=== PATIENT | female | born 1960 | race Caucasian/White ===

== ENCOUNTER 2022-12-27 23:47 | Emergency (ER) | payer OTHER, SELFPAY ==
[2022-12-28 00:05] VITALS: BP 190/99; PULSE 82; RESP 20; TEMP 36.9; O2SAT 96; BMI 31.1
--- NOTE | 2022-12-28 01:35 | ECG_ITS ---
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 Measurements Intervals [place] Rate: 64 P: 74 WA: 177 QRS: 76 QRSD: 85 T: 74 QT: 428 QTc: 443 Interpretive Statements SINUS RHYTHM No previous ECG available for comparison Electronically Signed On 12-29-2022 11:24:51 ASSEMBLER KNIFE by Lex Fisher M.D. [id number]
--- NOTE | 2022-12-28 01:35 | XRR_ITS ---
PROCEDURE INFORMATION: Exam: XR Abdomen Exam date and time: 12/28/2022 1:54 AM Age: 62 years old Clinical indication: Abdominal pain; Flank; Right; Additional info: Abd constipation TECHNIQUE: Imaging protocol: Radiologic exam of the abdomen. Views: Frontal supine view of the abdomen. 1 View. COMPARISON: CR XR chest 1V portable [id number] 12/28/2022 1:50 AM FINDINGS: Gastrointestinal tract: Normal. No bowel dilation. Organs: 1.4 cm nonobstructing left renal pelvis stone. There has been a cholecystectomy. Calcified uterine fibroids are present. Bones/joints: Unremarkable. XR/XR KUB [id number] IMPRESSION: 1.4 cm nonobstructing left renal pelvis stone.
--- NOTE | 2022-12-28 01:35 | XRR_ITS ---
PROCEDURE INFORMATION: Exam: XR Chest Exam date and time: 12/28/2022 1:50 AM Age: 62 years old Clinical indication: Pain; Chest pressure; Additional info: Chest pain TECHNIQUE: Imaging protocol: Radiologic exam of the chest. Views: 1 view. COMPARISON: No relevant prior studies available. FINDINGS: Lungs: Unremarkable. No consolidation. Pleural spaces: Unremarkable. No pleural effusion. No pneumothorax. Heart/Mediastinum: Unremarkable. No cardiomegaly. Bones/joints: Unremarkable. XR/XR chest 1V portable [id number] IMPRESSION: No acute findings.
--- NOTE | 2022-12-28 01:35 | W.ED.GENADLT ---
Documented by User: TISHA Bentley 12/28/22 03:02 HPI - General Adult General: Chief complaint: General Medical Stated complaint: UTI, E. Coli, passing a kidney Time Seen by Provider: 12/28/22 01:27 History of Present Illness: 62-year-old female [facility] with multiple complaints. Patient states that she has uterine fibroids, has been recently diagnosed with a urinary tract infection, has been told she has kidney stones. Patient reports that about 2 months ago she had a bowel movement when she was constipated and since then she has had chest pressure radiates up into her neck. [facility] patient reported that she had had increased chest discomfort radiating up into her neck which prompted her to come to the ER. Patient appears nontoxic. Associated symptoms: Reports chest pain; Deny dyspnea Review of Systems Card: Reports: chest pain Resp: Denies: dyspnea GI: Reports: constipation and bloating : Reports: other (Pelvic pressure) Physical Exam Const: COMMON NORMALS: alert HENMT: COMMON NORMALS: normocephalic HEAD & SCALP: normocephalic MOUTH: moist mucous membranes abnormal Neck/C-Spine: COMMON NORMALS: full ROM Resp: COMMON NORMALS: normal respiratory effort and clear to auscultation bilaterally AUSCULTATION: clear to auscultation bilaterally Cardio: COMMON NORMALS: regular rate and regular rhythm RATE: regular rate RHYTHM: regular rhythm GI: COMMON NORMALS: Soft to palpation PALPATION: Yes Soft to palpation : COMMON NORMALS: Yes no CVA tenderness BLADDER/KIDNEY EXAM: Yes no CVA tenderness Back/Pelvis: COMMON NORMALS: no CVA tenderness Extremity: COMMON NORMALS: no pedal edema Neuro: SENSORIUM/ORIENTATION: Yes alert Skin: COMMON NORMALS: turgor normal GENERAL SKIN EXAM: turgor normal Course Vital Signs: Vital signs: Vital Signs Temperature 98.5 F 12/28/22 00:05 Pulse Rate 64 12/28/22 02:44 Respiratory Rate 15 12/28/22 02:44 Blood Pressure 140/75 12/28/22 02:44 Pulse Oximetry 99 12/28/22 02:44 Oxygen Delivery Me thod 12/28/22 02:44 [facility] - General Adult Medical Decision Making [facility] with chest wall pressure radiating up into her neck. Patient reports symptoms on and off for the last 2 months. Patient has been evaluated in other emergency departments with findings such as diverticulosis, uterine fibroid, renal calculi, UTI. Patient reports that she has had this obnoxious bloating along with the chest pressure radiating into her neck. Vital signs were normal except for elevation of blood pressure. Lungs were clear to auscultation. Abdomen was soft nontender. No edema was noted in the extremities. Differential diagnosis includes but not limited to ACS, anxiety about health, gastroesophageal reflux disorder. Laboratory values were unremarkable except for sodium of 130. EKG shows normal sinus rhythm. Troponin was less than 6. Reviewed labs and exam with patient with recommendations for follow-up with primary care. Discussed further evaluation with gastroenterology for patient's bloating and possible hiatal hernia. Patient reported understanding agreed to plan. Lab Data 12/28/22 02:15 12/28/22 02:15 Radiology Impressions Chest X-Ray 12/28/22 01:35 IMPRESSION: No acute findings. KUB X-Ray 12/28/22 01:35 IMPRESSION: 1.4 cm nonobstructing left renal pelvis stone. Laboratory Results WBC 7.0 10^3/uL (4.0-10.0) 12/28/22 02:15 RBC 4.45 10^6/uL (4.1-5.3) 12/28/22 02:15 Hgb 14.2 g/dL (11.5-15.3) 12/28/22 02:15 Hct 41.7 % (37.0-47.0) 12/28/22 02:15 MCV 93.7 fl (81-99) 12/28/22 02:15 MCH 31.9 pg (28.0-34.0) 12/28/22 02:15 MCHC 34.1 g/dL (30.0-36.0) 12/28/22 02:15 RDW 11.5 % (12.1-15.1) L 12/28/22 02:15 Plt Count 329 10^3/cmm (130-400) 12/28/22 02:15 MPV 9.2 fL (7.4-10.4) 12/28/22 02:15 Neut % (Auto) 73.1 % 12/28/22 02:15 Lymph % (Auto) 17.8 % 12/28/22 02:15 [place] % (Auto) 7.5 % 12/28/22 02:15 Eos % (Auto) 0.9 % 12/28/22 02:15 Baso % (Auto) 0.4 % 12/28/22 02:15 Neut # (Auto) 5.08 10^3/uL (1.8-7.7) 12/28/22 02:15 Lymph # (Auto) 1.2 10^3/uL (0.8-4.8) 12/28/22 02:15 [place] # (Auto) 0.5 10^3/uL (0.2-0.9) 12/28/22 02:15 Eos # (Auto) 0.1 10^3/uL (0.0-0.8) 12/28/22 02:15 Baso # (Auto) 0.0 10^3/uL (0.0-0.1) 12/28/22 02:15 Nucleated RBC % (auto) 0 % 12/28/22 02:15 Nucleated RBCs # 0.0 /100WBC 12/28/22 02:15 Sodium 130 mmol/L (136-145) L 12/28/22 02:15 Potassium 4.2 mmol/L (3.5-5.1) 12/28/22 02:15 Chloride 93 mmol/L (98-107) L 12/28/22 02:15 Carbon Dioxide 23 mmol/L (22-29) 12/28/22 02:15 Anion Gap 18.2 (5-19) 12/28/22 02:15 BUN 8 mg/dL (8-23) 12/28/22 02:15 Creatinine 0.7 mg/dL (0.5-0.9) 12/28/22 02:15 GFR Calculation 84.5 mL/min (90-130) L 12/28/22 02:15 Glucose 120 mg/dL (65-115) H 12/28/22 02:15 Calculated Osmolality 270 mOsm/kg (285-295) L 12/28/22 02:15 Calcium 10.6 mg/dL (8.5-10.5) H 12/28/22 02:15 Total Bilirubin 0.6 mg/dL (0.15-1.2) 12/28/22 02:15 AST 21 U/L (0-32) 12/28/22 02:15 ALT 15 U/L (0-33) 12/28/22 02:15 Alkaline Phosphatase 86 U/L (35-105) 12/28/22 02:15 Troponin T Gen 5 ng/L 6 ng/L (0-10) 12/28/22 02:15 Total Protein 6.9 g/dL (6.6-8.7) 12/28/22 02:15 Albumin 4.6 g/dL (3.5-5.2) 12/28/22 02:15 Globulin 2.3 g/dL (1.3-4.6) 12/28/22 02:15 Urine Color Colorless (Yellow) 12/28/22 02:16 Urine Appearance Clear (CLEAR) 12/28/22 02:16 Urine pH 6 (5-7) 12/28/22 02:16 Ur Specific [place] 1.010 (1.005-1.030) 12/28/22 02:16 Urine Protein Neg (Negative) 12/28/22 02:16 Urine Glucose (UA) Norm (Normal) 12/28/22 02:16 Urine Ketones Negative (Negative) 12/28/22 02:16 Urine Blood Neg (Negative) 12/28/22 02:16 Urine Nitrate Negative (Negative) 12/28/22 02:16 Urine Bilirubin Neg (Negative) 12/28/22 02:16 Urine Urobilinogen Neg mg/dL (Negative) 12/28/22 02:16 Ur Leukocyte Esterase Trace (Negative) H 12/28/22 02:16 Urine RBC None /hpf (0-2) 12/28/22 02:16 Urine WBC 0-4 /hpf (0-5) H 12/28/22 02:16 Ur Squamous Epith Cells 0-4 /hpf (0-5) H 12/28/22 02:16 Amorphous Sediment Not Reportable 12/28/22 02:16 Urine Bacteria Trace /hpf (NONE) 12/28/22 02:16 Urine Mucus Trace /hpf 12/28/22 02:16 Imaging Data CXR: My impression: No acute abnormality KUB: My impression: Left renal calculi, normal bowel gas pattern, gallbladder clips, large radiopaque area in the pelvis which may be the uterine fibroid patient had talked about. EKG Data EKG 1: EKG interpretation date: 12/28/22 EKG interpretation time: 01:58 Prior EKG tracings: not available for review Interpretation: EKG shows a sinus rhythm with a regular rate in the 80s. No ST elevation or ectopy is noted. No prior exam was available for comparison. Computer generated interpretation: Chest X-Ray 12/28/22 01:35 IMPRESSION: No acute findings. KUB X-Ray 12/28/22 01:35 IMPRESSION: 1.4 cm nonobstructing left renal pelvis stone. Discharge Plan Discharge Patient Disposition: Home Clinical Impression: Chest pain in adult Condition: Stable Discharge Orders: Discharge ED (Routine); Ordered 12/28/22 Ordered By: Darwin Palacios Discharge Diet: Usual diet Discharge Activity: Increase activity as tolerated Patient Instructions: Chest Pain (ED) Activity Restrictions/Additional Instructions: Follow-up with primary care for further evaluation and treatment and for recheck of blood pressure. Continue medications as directed. Limit water intake to 8 to 10 glasses a day. Alternate water with electrolyte solution. Return to ER for worsening symptoms such as increased shortness of breath, severe chest pain, vomiting with blood in it, or new concerns. Coding Level of Care Code ED Ticket Agent for Chg Fwd Exam Comprehensive Documented by User: Ben Howe DO 12/28/22 05:24 HPI - General Adult General: Chief complaint: General Medical Stated complaint: UTI, E. Coli, passing a kidney Time Seen by Provider: 12/28/22 01:27 Course Vital Signs: Vital signs: Vital Signs Temperature 98.5 F 12/28/22 00:05 Pulse Rate 64 12/28/22 02:44 Respiratory Rate 15 12/28/22 02:44 Blood Pressure 140/75 12/28/22 02:44 Pulse Oximetry 99 12/28/22 02:44 Oxygen Delivery Me thod 12/28/22 02:44 MDM - General Adult Medical Decision Making Patient comes in tonight with chest wall pressure radiating up into her neck. Patient reports symptoms on and off for the last 2 months. Patient has been evaluated in other emergency departments with findings such as diverticulosis, uterine fibroid, renal calculi, UTI. Patient reports that she has had this obnoxious bloating along with the chest pressure radiating into her neck. Vital signs were normal except for elevation of blood pressure. Lungs were clear to auscultation. Abdomen was soft nontender. No edema was noted in the extremities. Differential diagnosis includes but not limited to ACS, anxiety about health, gastroesophageal reflux disorder. Laboratory values were unremarkable except for sodium of 130. EKG shows normal sinus rhythm. Troponin was less than 6. Reviewed labs and exam with patient with recommendations for follow-up with primary care. Discussed further evaluation with gastroenterology for patient's bloating and possible hiatal hernia. Patient reported understanding agreed to plan. This patient was originally seen by TISHA Faust.? I agree with his history, evaluation, and treatment. Lab Data 12/28/22 02:15 12/28/22 02:15 Radiology Impressions Chest X-Ray 12/28/22 01:35 IMPRESSION: No acute findings. KUB X-Ray 12/28/22 01:35 IMPRESSION: 1.4 cm nonobstructing left renal pelvis stone. Laboratory Results WBC 7.0 10^3/uL (4.0-10.0) 12/28/22 02:15 RBC 4.45 10^6/uL (4.1-5.3) 12/28/22 02:15 Hgb 14.2 g/dL (11.5-15.3) 12/28/22 02:15 Hct 41.7 % (37.0-47.0) 12/28/22 02:15 MCV 93.7 fl (81-99) 12/28/22 02:15 MCH 31.9 pg (28.0-34.0) 12/28/22 02:15 MCHC 34.1 g/dL (30.0-36.0) 12/28/22 02:15 RDW 11.5 % (12.1-15.1) L 12/28/22 02:15 Plt Count 329 10^3/cmm (130-400) 12/28/22 02:15 MPV 9.2 fL (7.4-10.4) 12/28/22 02:15 Neut % (Auto) 73.1 % 12/28/22 02:15 Lymph % (Auto) 17.8 % 12/28/22 02:15 [place] % (Auto) 7.5 % 12/28/22 02:15 Eos % (Auto) 0.9 % 12/28/22 02:15 Baso % (Auto) 0.4 % 12/28/22 02:15 Neut # (Auto) 5.08 10^3/uL (1.8-7.7) 12/28/22 02:15 Lymph # (Auto) 1.2 10^3/uL (0.8-4.8) 12/28/22 02:15 [place] # (Auto) 0.5 10^3/uL (0.2-0.9) 12/28/22 02:15 Eos # (Auto) 0.1 10^3/uL (0.0-0.8) 12/28/22 02:15 Baso # (Auto) 0.0 10^3/uL (0.0-0.1) 12/28/22 02:15 Nucleated RBC % (auto) 0 % 12/28/22 02:15 Nucleated RBCs # 0.0 /100WBC 12/28/22 02:15 Sodium 130 mmol/L (136-145) L 12/28/22 02:15 Potassium 4.2 mmol/L (3.5-5.1) 12/28/22 02:15 Chloride 93 mmol/L (98-107) L 12/28/22 02:15 Carbon Dioxide 23 mmol/L (22-29) 12/28/22 02:15 Anion Gap 18.2 (5-19) 12/28/22 02:15 BUN 8 mg/dL (8-23) 12/28/22 02:15 Creatinine 0.7 mg/dL (0.5-0.9) 12/28/22 02:15 GFR Calculation 84.5 mL/min (90-130) L 12/28/22 02:15 Glucose 120 mg/dL (65-115) H 12/28/22 02:15 Calculated Osmolality 270 mOsm/kg (285-295) L 12/28/22 02:15 Calcium 10.6 mg/dL (8.5-10.5) H 12/28/22 02:15 Total Bilirubin 0.6 mg/dL (0.15-1.2) 12/28/22 02:15 AST 21 U/L (0-32) 12/28/22 02:15 ALT 15 U/L (0-33) 12/28/22 02:15 Alkaline Phosphatase 86 U/L (35-105) 12/28/22 02:15 Troponin T Gen 5 ng/L 6 ng/L (0-10) 12/28/22 02:15 Total Protein 6.9 g/dL (6.6-8.7) 12/28/22 02:15 Albumin 4.6 g/dL (3.5-5.2) 12/28/22 02:15 Globulin 2.3 g/dL (1.3-4.6) 12/28/22 02:15 Urine Color Colorless (Yellow) 12/28/22 02:16 Urine Appearance Clear (CLEAR) 12/28/22 02:16 Urine pH 6 (5-7) 12/28/22 02:16 Ur Specific [place] 1.010 (1.005-1.030) 12/28/22 02:16 Urine Protein Neg (Negative) 12/28/22 02:16 Urine Glucose (UA) Norm (Normal) 12/28/22 02:16 Urine Ketones Negative (Negative) 12/28/22 02:16 Urine Blood Neg (Negative) 12/28/22 02:16 Urine Nitrate Negative (Negative) 12/28/22 02:16 Urine Bilirubin Neg (Negative) 12/28/22 02:16 Urine Urobilinogen Neg mg/dL (Negative) 12/28/22 02:16 Ur Leukocyte Esterase Trace (Negative) H 12/28/22 02:16 Urine RBC None /hpf (0-2) 12/28/22 02:16 Urine WBC 0-4 /hpf (0-5) H 12/28/22 02:16 Ur Squamous Epith Cells 0-4 /hpf (0-5) H 12/28/22 02:16 Amorphous Sediment Not Reportable 12/28/22 02:16 Urine Bacteria Trace /hpf (NONE) 12/28/22 02:16 Urine Mucus Trace /hpf 12/28/22 02:16 EKG Data EKG 1: Computer generated interpretation: Chest X-Ray 12/28/22 01:35 IMPRESSION: No acute findings. KUB X-Ray 12/28/22 01:35 IMPRESSION: 1.4 cm nonobstructing left renal pelvis stone. Discharge Plan Discharge Patient Disposition: Home Clinical Impression: Chest pain in adult Condition: Stable Discharge Orders: Discharge ED (Routine); Ordered 12/28/22 Ordered By: Darwin Palacios Discharge Diet: Usual diet Discharge Activity: Increase activity as tolerated Patient Instructions: Chest Pain (ED) Activity Restrictions/Additional Instructions: Follow-up with primary care for further evaluation and treatment and for recheck of blood pressure. Continue medications as directed. Limit water intake to 8 to 10 glasses a day. Alternate water with electrolyte solution. Return to ER for worsening symptoms such as increased shortness of breath, severe chest pain, vomiting with blood in it, or new concerns. Coding Level of Care Code ED Ticket Agent for Vandana Cabello Exam Comprehensive
[2022-12-28 02:19] LABS: Basophils % 0.4 %; Eosinophils # 0.1 10^3/uL (0.0-0.8); Eosinophils % 0.9 %; Hematocrit 41.7 % (37.0-47.0); Hemoglobin 14.2 g/dL (11.5-15.3); Lymphocytes # 1.2 10^3/uL (0.8-4.8); Lymphocytes % 17.8 %; Mean Corpuscular HGB Conc 34.1 g/dL (30.0-36.0); Mean Corpuscular Hemoglobin 31.9 pg (28.0-34.0); Mean Corpuscular Volume 93.7 fl (81-99); Mean Platelet Volume 9.2 fL (7.4-10.4); Monocytes # 0.5 10^3/uL (0.2-0.9); Monocytes % 7.5 %; Neutrophils # 5.08 10^3/uL (1.8-7.7); Neutrophils % 73.1 %; Nucleated Red Blood Cells % 0 %; Platelet Count 329 10^3/cmm (130-400); Red Blood Count 4.45 10^6/uL (4.1-5.3); Red Cell Distribution Width 11.5 % (12.1-15.1)
[2022-12-28 02:32] LABS: Add Urine Microscopic? YES; Bilirubin Urine Neg (Negative); Blood Urine Neg (Negative); Glucose Urine UA Norm (Normal); Ketones Urine Negative (Negative); Leukocyte Esterase Urine Trace (Negative); Nitrate Urine Negative (Negative); Protein Urine Neg (Negative); Urine Appearance Clear (CLEAR); Urine Color Colorless (Yellow); Urobilinogen Urine Neg (Negative); pH Urine 6 (5-7)
[2022-12-28 02:34] LABS: Add Urine Culture? No; Bacteria Urine TRACE /hpf; Mucus Urine TRACE /hpf; Squamous Epithelial Cell Urine 0-4 /hpf (0-5); WBC Urine 0-4 /hpf (0-5)
[2022-12-28 02:40] LABS: Troponin T (5th) Once 6 ng/L (0-10)
[2022-12-28 02:42] LABS: Alanine Aminotransferase 15 U/L (0-33); Albumin Level 4.6 g/dL (3.5-5.2); Alkaline Phosphatase 86 U/L (35-105); Anion Gap 18.2 (5-19); Aspartate Amino Transferase 21 U/L (0-32); Blood Urea Nitrogen 8 mg/dL (8-23); Calcium 10.6 mg/dL (8.5-10.5); Carbon Dioxide 23 mmol/L (22-29); Chloride 93 mmol/L (98-107); Globulin 2.3 g/dL (1.3-4.6); Glomerular Filtration Rate 84.5 mL/min (90-130); Glucose 120 mg/dL (65-115); Osmolality Calculated 270 mOsm/kg (285-295); Potassium 4.2 mmol/L (3.5-5.1); Sodium 130 mmol/L (136-145); Total Bilirubin 0.6 mg/dL (0.15-1.2); Total Protein 6.9 g/dL (6.6-8.7)
[2022-12-28 02:44] VITALS: BP 140/75; PULSE 64; RESP 15; O2SAT 99
== END 2022-12-28 03:13 | disposition home or self-care (01) ==
PROVIDERS: Emergency Provider Nurse Practitioner Family
DX: R07.9 Chest pain, unspecified (principal)
CPT/HCPCS: 71045; 74018; 80053; 81001; 84484; 85025; 93005; 99285

== ENCOUNTER 2025-09-19 19:12 | Emergency (ER) | payer MEDICARE, SELFPAY ==
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
--- OUTSIDE RECORDS SUMMARY | 2025-09-19 19:21 | XMS_ITS | Clinical Summary ---
Author Organization [facility] Address [address] [place] [address] Care Team Providers Care Chief Fundraising Officer Name Role Phone Ashley Schafer Primary Care Provider + Source Comments [facility],non-owned Affiliates and Associated Physician Practices is amultiple site organization consisting of ambulatory clinics and hospital sitesin [place], [place], [place] and [place]. This disclosure is being madepursuant to the Care Everywhere program and may not contain all information available regarding this patient. Last updated 18.[facility] [employer] Allergies No known active allergies Medications * Be aware that medications may not be up to date on this document. Alwaysverify current medications with the patient. acetaminophen (Tylenol) 325 MG tablet Take 1 (one) tablet by mouth Active baclofen (Lioresal) 10 MG tablet Take 1 (one) tablet by mouth 3 times daily as needed Active mirtazapine (Remeron) 15 MG tablet Take 1 (one) tablet by mouth 07/19/2025 Active gabapentin (Neurontin) 100 MG capsule Take 1 (one) capsule by mouth 3 times daily 07/19/2025 Active ibuprofen (Motrin) 600 MG tablet Take 1 (one) tablet by mouth every 6 hours as needed for Pain Active polyethylene glycol 3350 (Miralax) 17 GM/SCOOP powder Take 17 (seventeen) g by mouth once daily Active Turmeric (QC TUMERIC COMPLEX PO) Active Encounters Date Type Department Care Team Description 09/19/2025 11:00 AM CDT Office Visit [facility] - ENVIRONMENTAL SERVICES TECHNICIAN [address] [place] [address] Simone Anand MD Neuralgia of left pudendal nerve (Primary Dx); Trigger point 09/19/2025 Travel 09/06/2025 Telephone [facility] - ENVIRONMENTAL SERVICES TECHNICIAN [address] [place] [address] Simone Anand MD Treatment (Questions about treatment, pls call, thank you) 08/04/2025 Travel from Last 3 Months Social History Tobacco Use Types Packs/Day Years [...] on file Sexual Orientation Not on file Last Filed Vital Signs Vital Sign Reading Time Taken Comments Blood Pressure 126/82 09/19/2025 10:43 AM CDT Pulse - - Temperature - - Respiratory Rate - - Oxygen Saturation - - Inhaled Oxygen Concentration - - Weight 68 kg (150 lb) 09/19/2025 10:43 AM CDT Height 157.5 cm (5' 2 ) 09/19/2025 10:43 AM CDT Body Mass Index 27.44 09/19/2025 10:43 AM CDT Plan of Treatment Health Maintenance Due Date Last Done Comments BONE DENSITY TESTING 1960 COLOGUARD (AGES 45-75) - COL ON CA SCREENING 1960 COLON MONITORING 1960 COLONOSCOPY - COLON CA SCREENING 1959 CT COLONOGRAPHY - COLON CA SCREENING 1960 Colorectal Cancer Screening 1960 FIT - COLON CA SCREENING 1959 FLEX SIG - COLON CA SCREENING 1959 LIPID TESTING 1960 HEPATITIS C SCREENING 01/21/1977 DTAP/TDAP/TD VACCINES (1 - Tdap) 1978 PNEUMOCOCCAL VACCINE 50+ (1 of 1 - PCV) 2009 ZOSTER VACCINE (1 of 2) 2009 MEDICARE AWV CALENDAR YEAR 2024 COVID-19 VACCINE (1 - 2023-2 5 season) 2025 INFLUENZA VACCINE (#1) 2025 SCREENING FOR DIABETES 09/19/2025 MAMMOGRAM 05/23/2027 05/23/2025, 05/02/2025 Respiratory Syncytial Virus (RSV) Vaccine Pt: or over 60 yrs (1 - 1-dose 75+ series) 2034 DEPRESSION SCREENING Completed 09/19/2025 HEPATITIS B VACCINE Aged Out No longe r eligible based on patient's age to complete this topic HIB VACCINE Aged Out No longer eligi ble based on patient's age to complete this topic HPV VACCINE Aged Out No longer eligi ble based on patient's age to complete this topic MENINGOCOCCAL (Group B) VACCINE SHARED DECISION-MAKING Aged Out No longer eligible based on patient's age to complete this topic MENINGOCOCCAL GROUPS A/C/Y/W VACCINE Aged Out No longer eligible b ased on patient's age to complete this topic Insurance [employer] MEDICARE ADV Care Teams Chief Fundraising Officer Relationship Specialty Start Date End Date Ashley Schafer, PAWN BROKER-MANAGER FIRE [address] [place] [id number] PCP - General Nurse Practitioner 09/19/25
--- OUTSIDE RECORDS SUMMARY | 2025-09-19 19:21 | XMS_ITS | Encounter Summary ---
Author Organization [facility] Health Address [address] [place] [address] Care Team Providers Care Flight Manager Name Role Phone Ashley Schafer Primary Care Provider + Encounter Details Date Type Department Care Team (Latest Contact Info) Description 09/19/2025 Travel Social History Tobacco Use Types Packs/Day Years Used Date Smoking Tobacco: Former Cigarettes Smokeless Tobacco: Never Alcohol Use Standard Drinks/Week Comments Not Currently [...] on file documented as of this encounter Plan of Treatment Not on file documented as of this encounter Visit Diagnoses Not on filedocumented in this encounter Care Teams Flight Manager Relationship Specialty Start Date End Date Ashley Schafer APRN-CNP [address] [place] [phone] PCP - General Nurse Practitioner 09/19/25 documented as of this encounter
--- OUTSIDE RECORDS SUMMARY | 2025-09-19 19:21 | XMS_ITS | Clinical Summary ---
Author Organization [facility] Address [address] [place] [address] Phone Care Team Providers Care Corporate Communications Associate Name Role Phone Unavailable Primary Care Provider Unavailabl e Allergies No known active allergies Medications pregabalin (LYRICA) 100 mg Capsule Take 1 Capsule by mouth 2 times daily. 02/04/2025 Active naproxen (NAPROSYN) 500 mg tablet Take 500 mg by mouth 2 times daily with meals. 01/28/2025 Active baclofen (LIORESAL) 10 mg tablet Take 1 Tablet by mouth 3 times daily. 01/27/2025 Active dicyclomine (BENTYL) 20 mg tablet Take 20 mg by mouth. 11/11/2024 Active meloxicam (MOBIC) 15 mg tablet Take 15 mg by mouth. 11/11/2024 Active acetaminophen (TYLENOL) 325 mg tablet Take 325 mg by mouth. Active Active Problems No known active problems Encounters Date Type Department Care Team Description 08/16/2025 External Device Data [facility] ABSTRACTION Provider, Abstract 07/05/2025 External Device Data [facility] ABSTRACTION Provider, Abstract from Last 3 Months Immunizations Immunization Administration Dates Next Due (TDVAX)(7 YRS UP) TETANUS AN D DIPHTHERIA TOXOIDS, ADSORBED (2 LF OF TETANUS TOXOID AND 2 LF OF DIPHTHERIA TOXOID), 0.5ML (PF), IM 04/28/2001 Family History Medical History Relation Name Comments Breast Cancer Neg Hx Melanoma Neg Hx Ovarian Cancer Neg Hx Pancreatic Cancer Neg Hx Uterine or Endometrial Cancer, Not Including Cervical Neg Hx Social History Tobacco Use Types Packs/Day Years Used Date Smoking Tobacco: Never Assessed Comments No Sex and Gender Information Value Date Recorded Sex Assigned at Not on file Legal Sex Female 12:05 AM 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 Gender Identity Not on file Sexual Orientation Not on file Last Filed Vital Signs Vital Sign Reading Time Taken Comments Blood Pressure - - Pulse - - Temperature - - Respiratory Rate - - Oxygen Saturation - - Inhaled Oxygen Concentration - - Weight 74.8 kg (165 lb) 02/07/2025 3:06 PM CDT Height 157.5 cm (5' 2 ) 02/07/2025 3:06 PM CDT Body Mass Index 30.18 02/07/2025 3:06 PM CDT Plan of Treatment Health Maintenance Due Date Last Done Comments Pre-Diabetes and Diabetes Screening 1960 COLORECTAL SCREENING 2004 Colorectal Cancer Screening 2004 FIT-DNA Q 3 years 2004 FIT/FOBT Q 1 year 2004 Flex Sig/CT Colonography Q 5 years 2004 PNEUMOCOCCAL VACCINE 50+ YEA RS (1 of 1 - PCV) 2009 ZOSTER VACCINE (1 of 2) 2009 DTAP/TDAP/TD VACCINES (1 - Tdap) 02/15/2014 02/15/20 14, 04/28/2001 OSTEOPOROSIS SCREENING 2024 INFLUENZA VACCINE (#1) 2025 BREAST CANCER SCREENING 05/23/2026 05/23/2025, 05/02 RSV VACCINE (60+ or ) (1 - 1-dose 75+ series) 2034 Procedures Procedure Name Priority Date/Time Associated Diagnosis Comments MAMMO DIAG UNI LEFT 3D DAISY W OR WO CAD Routine 05/23/2025 10:14 AM CDT Inconclusive mammogram from Last 3 Months or Most Recently Relevant to Health Maintenance Results * MAMMO 3D DAISY DIAGNOSTIC UNI LT W OR WO CAD (05/23/2025 10:14 AM CDT) Anatomical Region Laterality Modality Breast Left Mammography 05/23/2025 9:13 AM CDT Addenda Addendum by Anusha Ortiz DO on 05/24/2025 11:41 AM CDT Addendum: The LEFT breast was evaluated by mammography. (The original report incorrectly states right breast mammogram was performed.) Narrative 05/23/2025 10:14 AM CDT EXAMINATION: MAMMO 3D DAISY DIAGNOSTIC UNI LT W OR WO CAD, MAMMO BREAST US LEFT LTD INDICATION: 65-year-old patient returns for evaluation of left breast focal asymmetry. No first degree family history of breast or ovarian cancer. COMPARISON: 05/02/2025 FINDINGS: MAMMOGRAPHY: BREAST COMPOSITION: There are scattered areas of fibroglandular density. DIAGNOSTIC RIGHT MAMMOGRAM In spot compression images, the asymmetry persists in CC view only. ULTRASOUND OF THE LEFT BREAST: Focused ultrasound at the 12:00 position 4 cm from the nipple demonstrates an anechoic cyst which measures up to 8.7 mm. This is similar in size and shape and corresponds with the mammographic abnormality. No internal flow or posterior acoustic shadowing is seen. Ultrasound of the axilla demonstrates normal axillary lymph nodes. IMPRESSIONS: The left breast asymmetry corresponds with a benign cyst. BI-RADS 2. Benign findings. Resume annual screening mammography. Findings and verbal/written recommendations were conveyed to the patient after completion of the exam. Procedure Note Anusha Ortiz, - 05/23/2025 EXAMINATION: MAMMO 3D DAISY DIAGNOSTIC UNI LT W OR WO CAD, MAMMO BREAST US LEFT LTD INDICATION: 65-year-old patient returns for evaluation of left breast focal asymmetry. No first degree family history of breast or ovarian cancer. COMPARISON: 05/02/2025 FINDINGS: MAMMOGRAPHY: BREAST COMPOSITION: There are scattered areas of fibroglandular density. DIAGNOSTIC RIGHT MAMMOGRAM In spot compression images, the asymmetry persists in CC view only. ULTRASOUND OF THE LEFT BREAST: Focused ultrasound at the 12:00 position 4 cm from the nipple demonstrates an anechoic cyst which measures up to 8.7 mm. This is similar in size and shape and corresponds with the mammographic abnormality. No internal flow or posterior acoustic shadowing is seen. Ultrasound of the axilla demonstrates normal axillary lymph nodes. IMPRESSIONS: The left breast asymmetry corresponds with a benign cyst. BI-RADS 2. Benign findings. Resume annual screening mammography. Findings and verbal/written recommendations were conveyed to the patient after completion of the exam. us Braxton Ro MD MAMMO ORDERABLES Edited Resul t - Final from Last 3 Months or Most Recently Relevant to Health Maintenance [facility]
[2025-09-19 19:23] VITALS: BP 165/81; PULSE 84; RESP 18; TEMP 36.5; O2SAT 97; BMI 26.9
--- NOTE | 2025-09-19 19:31 | ECG_ITS ---
[facility] Test Date: 2025-09-19 Pat Name: Le Bailey Department: Room: Gender: Female Loss Prevention Investigator: : 1960 Requested By: Christel Limon Order Number: [id number] Valerie MD: Tania Hernandez M.D. Measurements Intervals Dixon Rate: 73 P: 57 GA: 178 QRS: 35 QRSD: 80 T: 49 QT: 383 QTc: 424 Interpretive Statements SINUS RHYTHM LOW QRS VOLTAGE IN PRECORDIAL LEADS [QRS DEFLECTION < 1.0 mV IN CHEST LEADS] NONSPECIFIC T-WAVE ABNORMALITY INTERPRETATION BASED ON A DEFAULT AGE OF 40 YEARS Compared to ECG 12/28/2022 01:48:21 Low QRS voltage now present T-wave abnormality now present Electronically Signed On 09-20-2025 19:39:48 CDT by Tania Hernandez M.D. [id number]
[2025-09-19 20:29] LABS: Hematocrit 37.6 % (36-47); Hemoglobin 12.90 g/dL (11.27-16.99); Mean Corpuscular HGB Conc 34.3 g/dL (30-55); Mean Corpuscular Hemoglobin 34.9 pg (27-33); Mean Corpuscular Volume 101.6 fl (85-98); Nucleated Red Blood Cells % 0 %; Platelet Count 198 10^3/cmm (157-399); Red Blood Count 3.70 10^6/uL (3.85-5.65); White Blood Count 13.93 10^3/uL (3.29-11.43)
[2025-09-19 20:53] LABS: Alanine Aminotransferase 12 U/L (0-33); Albumin Level 4.7 g/dL (3.5-5.2); Alkaline Phosphatase 67 U/L (35-105); Anion Gap 19.0 (5-19); Aspartate Amino Transferase 21 U/L (0-32); Blood Urea Nitrogen 12 mg/dL (8-23); Calcium 9.9 mg/dL (8.5-10.5); Carbon Dioxide 24 mmol/L (22-29); Chloride 105 mmol/L (98-107); Creatinine Clr Calc Pharmacy 61.9513; Globulin 2.5 g/dL (1.3-4.6); Glucose 136 mg/dL (65-115); Osmolality Calculated 300 mOsm/kg (285-295); Potassium 4.0 mmol/L (3.5-5.1); Sodium 144 mmol/L (136-145); Total Protein 7.2 g/dL (6.6-8.7)
--- NOTE | 2025-09-19 21:30 | ECG_ITS ---
[facility] Test Date: 2025-09-19 Pat Name: Le Bailey Department: Room: Gender: Female Assistant Center Director: : 1960 Requested By: Christel Limon Order Number: [id number] Valerie MD: Tania Hernandez M.D. Measurements Intervals [place] Rate: 77 P: 55 AZ: 181 QRS: 48 QRSD: 82 T: 52 QT: 389 QTc: 443 Interpretive Statements SINUS RHYTHM Non diagnostic T wave changes Compared to ECG 12/28/2022 01:48:21 No significant changes Electronically Signed On 09-20-2025 15:39:28 CDT by Tania Hernandez M.D. [email or web address]
--- NOTE | 2025-09-19 21:32 | W.ED.GENADLT ---
HPI - General Adult General: Chief complaint: Nausea/Vomiting/Diarrhea Stated complaint: V\Dry Heaving\Dizzy Time Seen by Provider: 09/19/25 21:28 History of Present Illness: 65yo F w/cc presents with a chief complaint of nausea and vomiting during the car ride from [place] today. Patient states that the air conditioning in the car broke and she is quite sensitive to heat. She states she could not stop throwing up on the ride here though she is feeling much better now that she has cooled off. Patient was also feeling dizzy at that time and was feeling shaky, felt generally too weak to ambulate though that has now improved. Prior to this event, she has not been experiencing fever, runny nose, sore throat, cough, chest pain, shortness of breath, palpitations, hemoptysis or syncope or lower extremity swelling. She denies dysuria or hematuria. No diarrhea or blood in stool. Of note, patient states she has been visiting her mother in [place] and some residents have had symptoms of upper GI illness. Related Data Previous Rx's ?Medication ?Instructions ?Recorded ondansetron HCl 4 mg tablet 4 mg PO Q6H PRN nausea and 09/20/25 vomiting 5 days #20 tabs Allergies Allergy/AdvReac Type Severity Reaction Status Date / Time No Known Allergies Allergy Verified 12/28/22 00:12 Physical Exam Narrative: EXAM NARRATIVE: Vital signs were reviewed. Patient is alert and oriented. Patient is breathing comfortably, no increased WOB or accessory muscle use. SpO2 is above 95% on RA. Patient has clear lungs b/l, no rhonchi, wheezing or crackles. No hypotension or tachycardia. Abdomen is soft, nondistended and nontender. Patient is moving all extremities, no deformity or gross injury. No lower extremity edema or asymmetry. Neuro: Awake, alert, strength equal bilaterally. No sensory deficit. Able to perform FNF, heel to [place]. Ambulatory. CRANIAL NERVES: II: Pupils equal and reactive, III, IV, : EOM intact, no gaze preference or deviation, no nystagmus. V: normal sensation in V1, V2, and V3 segments bilaterally VII: no asymmetry, no nasolabial fold flattening VIII: normal hearing to speech IX, X: normal palatal elevation, no uvular deviation XI: 5/5 head turn and 5/5 shoulder shrug bilaterally XII: midline tongue protrusion Course Vital Signs: Vital signs: Vital Signs Temperature 97.7 F 09/19/25 19:23 Pulse Rate 97 09/20/25 01:10 Respiratory Rate 18 09/19/25 19:23 Blood Pressure 147/67 09/20/25 01:10 Pulse Oximetry 97 09/20/25 01:10 Oxygen Delivery Me thod Room Air 09/19/25 23:13 MDM - General Adult Medical Decision Making Patient is a 65-year-old female presenting with a chief complaint of nausea, vomiting, overheating during the car ride from [place]. She states the air conditioning in the vehicle was broken and she is sensitive to heat. She is feeling much better now. Differential diagnosis includes but is limited to, pancreatitis, gastroenteritis, cholecystitis, appendicitis, urinary tract infection, pyelonephritis, pneumonia, ACS, other. On exam, patient is HemoCue stable, nontoxic-appearing and has a nonfocal neurologic exam. Patient was evaluated basic lab work including CBC, CMP, UA and EKG. Patient has a mildly elevated white blood cell count. She is not anemic. Patient has normal kidney function, liver function and does not have any actionable electrolyte abnormalities. UA is not consistent with infection. After treatment with Zofran and reassessment, patient is feeling much better. EKG shows sinus rhythm with a heart rate of 73, normal axis, normal rules and no evidence of ST segment elevation. At this time, patient is appropriate for outpatient management. Patient was counseled on return precautions, given instructions on supportive care at home and discharged from the emergency department in a stable condition. Lab Data 09/19/25 20:18 09/19/25 20:18 Laboratory Results WBC 13.93 10^3/uL (3.29-11.43) H 09/19/25 20:18 RBC 3.70 10^6/uL (3.85-5.65) L 09/19/25 20:18 Hgb 12.90 g/dL (11.27-16.99) 09/19/25 20:18 Hct 37.6 % (36-47) 09/19/25 20:18 MCV 101.6 fl (85-98) H 09/19/25 20:18 MCH 34.9 pg (27-33) H 09/19/25 20:18 MCHC 34.3 g/dL (30-55) 09/19/25 20:18 RDW 12.5 % (12.1-15.1) 09/19/25 20:18 Plt Count 198 10^3/cmm (157-399) 09/19/25 20:18 MPV 9.2 fL (7.4-10.4) 09/19/25 20:18 Neut % (Auto) 92.5 % 09/19/25 20:18 Lymph % (Auto) 2.7 % 09/19/25 20:18 Ford % (Auto) 4.2 % 09/19/25 20:18 Eos % (Auto) 0.0 % 09/19/25 20:18 Baso % (Auto) 0.1 % 09/19/25:18 Neut # (Auto) 12.89 10^3/uL (1.8-7.7) H 09/19/25 20:18 Lymph # (Auto) 0.4 10^3/uL (0.8-4.8) L 09/19/25 20:18 Ford # (Auto) 0.6 10^3/uL (0.2-0.9) 09/19/25 20:18 Eos # (Auto) 0.0 10^3/uL (0.0-0.8) 09/19/25 20:18 Baso # (Auto) 0.0 10^3/uL (0.0-0.1) 09/19/25 20:18 Nucleated RBC % (auto) 0 % 09/19/25 20:18 Nucleated RBCs # 0.0 /100WBC 09/19/25 20:18 Sodium 144 mmol/L (136-145) 09/19/25 20:18 Potassium 4.0 mmol/L (3.5-5.1) 09/19/25 20:18 Chloride 105 mmol/L (98-107) 09/19/25 20:18 Carbon Dioxide 24 mmol/L (22-29) 09/19/25 20:18 Anion Gap 19.0 (5-19) 09/19/25 20:18 BUN 12 mg/dL (8-23) 09/19/25 20:18 Creatinine 0.6 mg/dL (0.5-0.9) 09/19/25 20:18 GFR Calculation 100.0 mL/min (90-130) 09/19/25 20:18 Glucose 136 mg/dL (65-115) H 09/19/25 20:18 Calculated Osmolality 300 mOsm/kg (285-295) H 09/19/25 20: Calcium 9.9 mg/dL (8.5-10.5) 09/19/25 20: Total Bilirubin 1.0 mg/dL (0.15-1.2) 09/19/25: AST 21 U/L (0-32) 09/19/25 20:18 ALT 12 U/L (0-33) 09/19/25 20:18 Alkaline Phosphatase 67 U/L (35-105) 09/19/25 20: Total Protein 7.2 g/dL (6.6-8.7) 09/19/25 20: Albumin 4.7 g/dL (3.5-5.2) 09/19/25: Globulin 2.5 g/dL (1.3-4.6) 09/19/25 20: Urine Color Yellow (Yellow) 09/19/25 22:04 Urine Appearance Clear (CLEAR) 09/19/25 22: Urine pH 5.5 (5-7) 09/19/25 22:04 Ur Specific [place] 1.025 (1.005-1.030) 09/19/25 22: Urine Protein 1+ (Negative) A 09/19/25 22:04 Urine Glucose (UA) Negative (Normal) 09/19/25 22: Urine Ketones 4+ (Negative) 09/19/25 22: Urine Blood Negative (Negative) 09/19/25 22:04 Urine Nitrate Negative (Negative) 09/19/25 22: Urine Bilirubin Negative (Negative) 09/19/25 22: Urine Urobilinogen 1.0 mg/dL (Negative) 09/19/25 22:04 Ur Leukocyte Esterase Trace (Negative) A 09/19/25 22:04 Urine RBC 0-4 /hpf (0-2) H 09/19/25 22:04 Urine WBC 5-10 /hpf (0-5) H 09/19/25 22:04 Ur Squamous Epith Cells 5-10 /hpf (0-5) H 09/19/25 22:04 Amorphous Sediment Not Reportable 09/19/25 22:04 Urine Bacteria Trace /hpf (NONE) 09/19/25 22:04 Urine Mucus 2+ /hpf 09/19/25 22:04 Urine Yeast Trace /hpf 09/19/25 22:04 No radiology studies performed this visit ED provider radiology interpretation(s): Normal sinus rhythm with a heart rate of 77, normal axis, normal intervals, no evidence of ST segment elevation, TWI or ischemic change. Discharge Plan Discharge Patient Disposition: Home Clinical Impression: Nausea & vomiting Qualifiers: Vomiting type: unspecified Qualified Code(s): R11.2 - Nausea with vomiting, unspecified Heat exposure Qualifiers: Encounter type: initial encounter Qualified Code(s): T67.9XXA - Effect of heat and light, unspecified, initial encounter Condition: Stable Prescriptions: New ondansetron HCl 4 mg tablet 4 mg PO Q6H PRN (Reason: nausea and vomiting) 5 Days Qty: 20 0RF Discharge Orders: Discharge ED (Routine); Ordered 09/20/25 Ordered By: Christel Limon Referrals: Braxton Ro MD [Primary Care Provider, Family Practice] Patient Instructions: Heat Exhaustion - Adult, Acute Nausea and Vomiting (DC), Opioid Safety, Pain Management, Patient Portal & Terry Instructions Activity Restrictions/Additional Instructions: Take Zofran for nausea and vomiting and please hydrate with Pedialyte, low sugar Gatorade or broth. Continue to monitor your condition closely at home. If your condition worsens or additional concerns arise, please return to the emergency department for reassessment. Follow-up with your primary care physician by the end of the week. Print Language: Mohawk Coding Level of Care Code ED Assessment Expert for Vandana Cabello
[2025-09-19 21:57] VITALS: BP 156/65; O2SAT 95
[2025-09-19 22:20] LABS: Glucose Urine UA Negative (Normal); Nitrate Urine Negative (Negative); Specific Gravity, Urine 1.025 (1.005-1.030)
[2025-09-19 22:21] VITALS: BP 169/93; O2SAT 98
[2025-09-19 22:40] LABS: Add Urine Microscopic? YES; UA Slide Review UA Slide Review Perf
[2025-09-19 22:50] VITALS: BP 175/95; O2SAT 97
[2025-09-19] MEDS: ondansetron hcl ODT 4 mg Tab PO (23:01)
[2025-09-19 23:13] VITALS: BP 147/84; O2SAT 96
[2025-09-20 01:10] VITALS: BP 147/67; PULSE 97; O2SAT 97
== END 2025-09-20 01:05 | disposition home or self-care (01) ==
PROVIDERS: Student in an Organized Health Care Education/Training Program; Emergency Provider Emergency Medicine; PCP Family Medicine
DX: R11.2 Nausea with vomiting, unspecified (principal); T67.9XXA Effect of heat and light, unspecified, initial encounter
CPT/HCPCS: 36415; 80053; 81001; 85025; 87086; 93005; 99284; Q0162